=== PATIENT | female | born 1960 | race Caucasian/White ===

== ENCOUNTER → 2020-11-16 | Outpatient (CLI) | payer OTHER | LOC: US 12:54 | PROVIDERS: ATTEND Urology | DX: N20.0 Calculus of kidney (principal) | CPT/HCPCS: 74018; 76770; 76857 ==

== ENCOUNTER 2024-08-04 11:10 | Inpatient (IN) | payer MEDICARE, OTHER ==
[~2024-08-04] VITALS: Ht 165.1 cm; Wt 69.9 kg
[2024-08-04 13:03] LABS: BASOPHILS # (AUTO) 0.1 (0.0-0.1); BASOPHILS % 0.6 % (0.0-1.0); EOSINOPHILS % 0.5 % (0.0-6.0); HEMATOCRIT 31.5 % (34.2-44.1); HEMOGLOBIN 10.2 g/dL (12.0-16.0); LYMPHOCYTES # (AUTO) 1.3 (1.0-3.2); MEAN CORPUSCULAR HEMOGLOBIN 28.7 pg (28-32); MEAN CORPUSCULAR HGB CONC 32.4 g/dL (31-35); MEAN CORPUSCULAR VOLUME 88.5 fL (81-99); MONOCYTES # (AUTO) 0.6 (0.2-0.8); MONOCYTES % 6.8 % (4.4-11.3); NEUTROPHILS # (AUTO) 6.2 (2.1-6.9); NEUTROPHILS % 75.7 % (38.7-80.0); PLATELET COUNT 286 x10e3/uL (140-360); RED BLOOD COUNT 3.56 x10e6/uL (3.6-5.1)
[2024-08-04 13:17] LABS: INR 0.95; PARTIAL THROMBOPLASTIN TIME 21.7 seconds (23.8-35.5); PROTHROMBIN TIME 13.3 seconds (11.9-14.5)
[2024-08-04 13:28] LABS: ALBUMIN 3.5 g/dL (3.5-5.0); BILIRUBIN,TOTAL 0.2 mg/dL (0.2-1.2); CALCIUM 9.3 mg/dL (8.4-10.2); CREATININE, SERUM 1.36 mg/dL (0.57-1.11); TOTAL PROTEIN 7.1 g/dL (6.5-8.1)
[2024-08-04 13:47] LABS: ANION GAP 17.2 mmol/L (8-16)
[2024-08-04 13:48] LABS: POTASSIUM 5.2 mmol/L (3.5-5.1)
[2024-08-04] MEDS ORDERED: SODIUM CHLORIDE FLUSH 10 ML SYR INJ PRN (14:15)
[2024-08-04] MEDS ORDERED: Morphine 2mg Syringe 2 MG/ML SYR IV PRN (14:15)
[2024-08-04 15:12] VITALS: PULSE 69; RESP 16; TEMP 98.1
[2024-08-04] MEDS: SODIUM CHLORIDE 0.9% 1000ML 1,000 ML IV ONE (15:29)
[2024-08-04] MEDS: TRAMADOL HCL 50 MG TAB PO ONE (15:30)
[2024-08-04 16:45] VITALS: BP 148/61; PULSE 71; RESP 20; TEMP 98.3; O2SAT 98
[2024-08-04 16:50] VITALS: BP 148/61; PULSE 71; RESP 20; TEMP 98.3; O2SAT 98
[2024-08-04] MEDS ORDERED: ALPRAZOLAM 0.25 MG TAB PO PRN (17:30)
[2024-08-04] MEDS ORDERED: ACETAMINOPHEN 325 MG TAB PO PRN (17:30)
[2024-08-04] MEDS ORDERED: Morphine 4mg INJECTION 4 MG/ML INJ IV PRN (17:30)
[2024-08-04] MEDS ORDERED: DEXTROSE 50% SYRINGE 50 ML IV PRN (17:30)
[2024-08-04] MEDS ORDERED: ALPRAZOLAM0.25 MG PO (17:44)
[2024-08-04] MEDS ORDERED: ALLEGRA ALLERGY60 MG PO (19:22)
[2024-08-04] MEDS ORDERED: IGG (19:22)
[2024-08-04] MEDS ORDERED: TRESIBA100 UNIT/1 SC (19:22)
[2024-08-04] MEDS ORDERED: LISINOPRIL2.5 MG PO (19:22)
[2024-08-04] MEDS ORDERED: DYMISTA NASAL S23 GM INH (19:22)
[2024-08-04] MEDS ORDERED: AMIODARONE HCL100 MG PO (19:22)
[2024-08-04] MEDS ORDERED: B12 ACTIVE1000 MCG PO (19:22)
[2024-08-04] MEDS ORDERED: BETAMETHASONE (19:22)
[2024-08-04] MEDS ORDERED: ADVAIR HFA 115-12 GM INH (19:22)
[2024-08-04] MEDS ORDERED: METOPROLOL SUCC25 MG PO (19:22)
[2024-08-04] MEDS ORDERED: LEVOTHYROXINE75 MCG PO (19:22)
[2024-08-04] MEDS ORDERED: [UNRECOGNIZED DRUG - OTHER] PO (19:22)
[2024-08-04] MEDS ORDERED: LIPITOR10 MG PO (19:22)
[2024-08-04] MEDS ORDERED: LEVALBUTEROL TA15 GM INH (19:22)
[2024-08-04] MEDS ORDERED: METFORMIN HCL500 MG PO (19:22)
[2024-08-04] MEDS ORDERED: IRON159 MG PO (19:22)
[2024-08-04] MEDS ORDERED: CALCIUM CARBON500 MG PO (19:22)
[2024-08-04] MEDS ORDERED: EFFEXOR XR150 MG PO (19:22)
[2024-08-04] MEDS ORDERED: IPRATROPIU0.2 MG/1 M INH (19:22)
[2024-08-04] MEDS ORDERED: PROTONIX20 MG PO (19:22)
[2024-08-04] MEDS ORDERED: MONTELUKAST SOD10 MG PO (19:22)
[2024-08-04] MEDS: INSULIN REGULAR, HUMAN 100 UNIT/1 ML SQ SCH (21:00)
[2024-08-04 22:36] VITALS: BP 144/57; PULSE 69; RESP 20; TEMP 97.3; O2SAT 96
[2024-08-04] MEDS: MONTELUKAST SODIUM 10 MG TAB PO SCH (22:45)
[2024-08-04] MEDS: HYDROCODONE/APAP 5MG-325MG TAB PO ONE (22:45)
[2024-08-04] MEDS: ATORVASTATIN 40 MG TAB PO SCH (22:46)
[2024-08-05] MEDS: HYDROCODONE/APAP 5MG-325MG TAB PO ONE (02:45)
[2024-08-05] MEDS: SODIUM CHLORIDE 0.9% 1000ML 1,000 ML IV SCH (02:45)
[2024-08-05 04:45] VITALS: BP 168/65; PULSE 75; RESP 20; TEMP 97.8; O2SAT 98
[2024-08-05 05:09] LABS: BASOPHILS % 0.3 % (0.0-1.0); EOSINOPHILS % 0.1 % (0.0-6.0); HEMATOCRIT 29.4 % (34.2-44.1); HEMOGLOBIN 9.5 g/dL (12.0-16.0); LYMPHOCYTES # (AUTO) 1.6 (1.0-3.2); LYMPHOCYTES % 17.2 % (18.0-39.1); MEAN CORPUSCULAR HEMOGLOBIN 28.1 pg (28-32); MEAN CORPUSCULAR HGB CONC 32.3 g/dL (31-35); MONOCYTES # (AUTO) 0.9 (0.2-0.8); MONOCYTES % 9.6 % (4.4-11.3); NEUTROPHILS # (AUTO) 6.6 (2.1-6.9); NEUTROPHILS % 72.7 % (38.7-80.0); PLATELET COUNT 308 x10e3/uL (140-360); RED BLOOD COUNT 3.38 x10e6/uL (3.6-5.1); RED CELL DISTRIBUTION WIDTH 15.1 % (11.7-14.4); WHITE BLOOD COUNT 9.13 x10e3/uL (4.8-10.8)
[2024-08-05 05:25] LABS: INR 0.97; PROTHROMBIN TIME 13.5 seconds (11.9-14.5)
[2024-08-05 05:26] LABS: PARTIAL THROMBOPLASTIN TIME 25.7 seconds (23.8-35.5)
[2024-08-05 05:36] LABS: ALBUMIN 3.3 g/dL (3.5-5.0); BILIRUBIN,TOTAL 0.3 mg/dL (0.2-1.2); CALCIUM 9.3 mg/dL (8.4-10.2); CREATININE, SERUM 1.36 mg/dL (0.57-1.11); TOTAL PROTEIN 6.7 g/dL (6.5-8.1)
[2024-08-05] MEDS: LEVOTHYROXINE SODIUM 75 MCG TAB PO SCH (05:40)
[2024-08-05 08:00] VITALS: BP 161/70; PULSE 74; RESP 19; TEMP 98.2; O2SAT 98
[2024-08-05] MEDS ORDERED: NALOXONE HCL INJ 0.4 MG/ML AMP IV PRN (08:15)
[2024-08-05] MEDS ORDERED: HYDROMORPHONE 0.2MG/ML-SOD CHL 30ML PCA SYRINGE IV PRN (08:15)
[2024-08-05 09:00] VITALS: BP 161/70; PULSE 74; RESP 19; TEMP 98.2; O2SAT 98
[2024-08-05] MEDS: DOXYCYCLINE HYCLATE TABLET 100 MG TAB PO SCH (09:00)
[2024-08-05] MEDS: FLUTICASONE PROPIONATE NASAL SPRAY NS SCH (09:00)
[2024-08-05] MEDS: METOPROLOL SUCCINATE 25 MG TAB XL PO SCH (09:00)
[2024-08-05] MEDS: INSULIN GLARGINE 100 UNITS/ML VIAL SQ SCH (09:00)
[2024-08-05] MEDS: AMIODARONE HCL 200 MG TAB PO SCH (09:00)
[2024-08-05] MEDS: VENLAFAXINE HCL 75 MG TAB PO SCH ×2 (09:00→23:08)
[2024-08-05 09:10] LABS: FERRITIN 111.36 ng/mL (4.63-204.00)
[2024-08-05] MEDS: FAMOTIDINE 20 MG TAB PO ONE (09:13)
[2024-08-05] MEDS: ACETAMINOPHEN 1000 MG/100 ML IV PRN (09:17)
[2024-08-05] MEDS: HYDROMORPHONE 1MG/1ML INJ IV PRN ×2 (09:17→12:31)
[2024-08-05 12:00] VITALS: BP 175/66; PULSE 76; RESP 21; TEMP 98.3; O2SAT 96
[2024-08-05] MEDS: SENNOSIDES 8.6 MG TAB PO SCH (12:33)
[2024-08-05] MEDS: ONDANSETRON HCL INJ 2MG/ML 2ML 2 MG/ML VIAL IV PRN (14:47)
[2024-08-05 16:00] VITALS: BP 160/72; PULSE 69; RESP 19; TEMP 98.2; O2SAT 97
[2024-08-05 20:00] VITALS: BP 160/58; PULSE 69; RESP 18; TEMP 98.2; O2SAT 100
[2024-08-05] MEDS ORDERED: VENLAFAXINE HCL 75 MG TAB PO SCH (21:00)
[2024-08-05] MEDS: HEPARIN SOD (PORCINE) 5,000 UNIT/ML VIAL SC SCH (23:09)
[2024-08-06] VITALS (7 sets, daily range): BP systolic 123–163; BP diastolic 58–68; PULSE 66–83; RESP 16–19; TEMP 97.9–99; O2SAT 95–100
[2024-08-06] MEDS: LEVOTHYROXINE SODIUM 50 MCG TAB PO SCH (05:05)
[2024-08-06] MEDS ORDERED: HYDRALAZINE HCL 20 MG/ML VIAL IV PRN (07:30)
[2024-08-06] MEDS: SENNA-S TABLET PO SCH (09:00)
[2024-08-06 11:17] LABS: BASOPHILS % 0.4 % (0.0-1.0); EOSINOPHILS % 0.4 % (0.0-6.0); HEMATOCRIT 28.3 % (34.2-44.1); HEMOGLOBIN 9.1 g/dL (12.0-16.0); LYMPHOCYTES # (AUTO) 1.2 (1.0-3.2); LYMPHOCYTES % 17.2 % (18.0-39.1); MEAN CORPUSCULAR HEMOGLOBIN 28.2 pg (28-32); MEAN CORPUSCULAR HGB CONC 32.2 g/dL (31-35); MEAN CORPUSCULAR VOLUME 87.6 fL (81-99); MONOCYTES # (AUTO) 0.6 (0.2-0.8); MONOCYTES % 8.7 % (4.4-11.3); NEUTROPHILS # (AUTO) 4.9 (2.1-6.9); PLATELET COUNT 240 x10e3/uL (140-360); RED BLOOD COUNT 3.23 x10e6/uL (3.6-5.1); RED CELL DISTRIBUTION WIDTH 15.2 % (11.7-14.4); WHITE BLOOD COUNT 6.67 x10e3/uL (4.8-10.8)
[2024-08-06 11:41] LABS: INR 1.05; PROTHROMBIN TIME 14.3 seconds (11.9-14.5)
[2024-08-06 11:42] LABS: PARTIAL THROMBOPLASTIN TIME 27.9 seconds (23.8-35.5)
[2024-08-06 11:51] LABS: ALBUMIN 2.9 g/dL (3.5-5.0); ALBUMIN/GLOBULIN RATIO 0.8 (0.8-2.0); BILIRUBIN,TOTAL 0.4 mg/dL (0.2-1.2); CALCIUM 9.3 mg/dL (8.4-10.2); CREATININE, SERUM 0.98 mg/dL (0.57-1.11); TOTAL PROTEIN 6.6 g/dL (6.5-8.1)
[2024-08-06] MEDS: HYDROCODONE/APAP 5MG-325MG TAB PO PRN (23:56)
[2024-08-07] VITALS: BP 124/61; PULSE 75; RESP 18; TEMP 97.6; O2SAT 97
[2024-08-07 04:00] VITALS: BP 130/62; PULSE 72; RESP 18; TEMP 97.4; O2SAT 97
[2024-08-07 06:28] LABS: BASOPHILS % 0.6 % (0.0-1.0); EOSINOPHILS % 0.5 % (0.0-6.0); HEMOGLOBIN 9.3 g/dL (12.0-16.0); LYMPHOCYTES # (AUTO) 1.3 (1.0-3.2); LYMPHOCYTES % 21.5 % (18.0-39.1); MEAN CORPUSCULAR HEMOGLOBIN 28.5 pg (28-32); MEAN CORPUSCULAR HGB CONC 32.1 g/dL (31-35); MONOCYTES # (AUTO) 0.7 (0.2-0.8); MONOCYTES % 10.6 % (4.4-11.3); NEUTROPHILS # (AUTO) 4.1 (2.1-6.9); NEUTROPHILS % 66.3 % (38.7-80.0); PLATELET COUNT 271 x10e3/uL (140-360); RED BLOOD COUNT 3.26 x10e6/uL (3.6-5.1); RED CELL DISTRIBUTION WIDTH 15.2 % (11.7-14.4); WHITE BLOOD COUNT 6.24 x10e3/uL (4.8-10.8)
[2024-08-07 07:26] VITALS: BP 135/59; PULSE 73; RESP 18; TEMP 98.6; O2SAT 100
[2024-08-07 07:49] VITALS: BP 135/59; PULSE 73; RESP 18; TEMP 98.6; O2SAT 100
[2024-08-07 09:06] LABS: ALBUMIN 2.9 g/dL (3.5-5.0); ALBUMIN/GLOBULIN RATIO 0.8 (0.8-2.0); ANION GAP 17.1 mmol/L (8-16); BILIRUBIN,TOTAL 0.4 mg/dL (0.2-1.2); CALCIUM 9.5 mg/dL (8.4-10.2); CREATININE, SERUM 1.03 mg/dL (0.57-1.11); POTASSIUM 5.1 mmol/L (3.5-5.1); TOTAL PROTEIN 6.5 g/dL (6.5-8.1)
[2024-08-07] MEDS ORDERED: FENTANYL CITRATE/PF 100MCG/2 ML INJ ONE (09:35)
[2024-08-07] MEDS ORDERED: PROPOFOL IV EMULSION 10 MG/ML 20 ML VIAL ONE (09:40)
[2024-08-07] MEDS ORDERED: SEVOFLURANE INHAL SOLN 250 ML PEN BTL ONE (09:40)
[2024-08-07] MEDS ORDERED: LIDOCAINE HCL 2% LOCAL INJ 5 ML SDV VIAL INJ ONE (09:40)
[2024-08-07] MEDS ORDERED: MIDAZOLAM HCL 2 MG/2 ML VIAL ONE (09:43)
[2024-08-07] MEDS ORDERED: PHENYLEPHRINE HCL 1% 10 MG/ML VIAL ONE (10:14)
[2024-08-07] MEDS ORDERED: FAMOTIDINE 20 MG/2 ML VIAL IV ONE (10:17)
[2024-08-07] MEDS ORDERED: ONDANSETRON HCL INJ 2MG/ML 2ML 2 MG/ML VIAL ONE (10:17)
[2024-08-07] MEDS ORDERED: SODIUM CHLORIDE 0.9% 100 ML ONE (10:41)
[2024-08-07] MEDS ORDERED: Vancomycin IV 1 GM VIAL ONE (10:41)
[2024-08-07] MEDS ORDERED: HYDROCODONE/APAP 5MG-325MG TAB PO PRN (17:00)
[2024-08-07 17:36] VITALS: BP 133/61; PULSE 65; RESP 15; TEMP 97.7; O2SAT 95
[2024-08-07 20:00] VITALS: BP 94/72; PULSE 83; RESP 16; TEMP 97.2; O2SAT 96; O2SAT 97
[2024-08-07] MEDS: Vancomycin IV 1 GM in SODIUM CHLORIDE 0.9% 250ML 250 ML IV SCH (21:29)
[2024-08-07] MEDS: ENOXAPARIN SOD INJ 40 MG/0.4 ML SYR SC SCH (21:29)
[2024-08-07] MEDS: HYDROCODONE/APAP 7.5MG-325MG 1 EA TAB PO PRN (23:15)
[2024-08-08] VITALS: BP 118/58; PULSE 74; RESP 16; TEMP 97.3; O2SAT 99
[2024-08-08 08:10] VITALS: BP 132/57; PULSE 81; RESP 15; TEMP 98.6; O2SAT 98
[2024-08-08 08:33] VITALS: BP 132/57; PULSE 81; RESP 15; TEMP 98.6; O2SAT 98
[2024-08-08 08:55] LABS: BASOPHILS % 0.1 % (0.0-1.0); HEMATOCRIT 27.2 % (34.2-44.1); HEMOGLOBIN 8.6 g/dL (12.0-16.0); LYMPHOCYTES # (AUTO) 0.9 (1.0-3.2); LYMPHOCYTES % 9.1 % (18.0-39.1); MEAN CORPUSCULAR HGB CONC 31.6 g/dL (31-35); MEAN CORPUSCULAR VOLUME 88.6 fL (81-99); MONOCYTES % 10.3 % (4.4-11.3); NEUTROPHILS % 79.8 % (38.7-80.0); PLATELET COUNT 378 x10e3/uL (140-360); RED BLOOD COUNT 3.07 x10e6/uL (3.6-5.1); RED CELL DISTRIBUTION WIDTH 15.3 % (11.7-14.4); WHITE BLOOD COUNT 10.08 x10e3/uL (4.8-10.8)
[2024-08-08 09:17] LABS: ALBUMIN/GLOBULIN RATIO 0.9 (0.8-2.0); ANION GAP 18.1 mmol/L (8-16); BILIRUBIN,TOTAL 0.3 mg/dL (0.2-1.2); CALCIUM 9.4 mg/dL (8.4-10.2); CREATININE, SERUM 1.4 mg/dL (0.57-1.11); POTASSIUM 5.1 mmol/L (3.5-5.1); TOTAL PROTEIN 6.5 g/dL (6.5-8.1)
[2024-08-08 11:00] VITALS: BP 132/57; PULSE 73; RESP 16; TEMP 99; O2SAT 96
[2024-08-08] MEDS ORDERED: ACETAMINOPHEN 1000 MG/100 ML IV PRN (15:45)
[2024-08-08 20:00] VITALS: BP 104/50; PULSE 63; RESP 16; TEMP 98.2; O2SAT 98
[2024-08-09] VITALS (8 sets, daily range): BP systolic 104–132; BP diastolic 50–62; PULSE 59–69; RESP 15–17; TEMP 97.6–98.7; O2SAT 95–100
[2024-08-09 05:04] LABS: BASOPHILS % 0.5 % (0.0-1.0); EOSINOPHILS % 0.5 % (0.0-6.0); HEMATOCRIT 27.2 % (34.2-44.1); HEMOGLOBIN 8.5 g/dL (12.0-16.0); LYMPHOCYTES # (AUTO) 1.5 (1.0-3.2); LYMPHOCYTES % 17.7 % (18.0-39.1); MEAN CORPUSCULAR HEMOGLOBIN 28.4 pg (28-32); MEAN CORPUSCULAR HGB CONC 31.3 g/dL (31-35); MONOCYTES # (AUTO) 0.8 (0.2-0.8); MONOCYTES % 9.4 % (4.4-11.3); NEUTROPHILS % 71.3 % (38.7-80.0); PLATELET COUNT 334 x10e3/uL (140-360); RED BLOOD COUNT 2.99 x10e6/uL (3.6-5.1); RED CELL DISTRIBUTION WIDTH 15.6 % (11.7-14.4); WHITE BLOOD COUNT 8.36 x10e3/uL (4.8-10.8)
[2024-08-09 05:35] LABS: ANION GAP 14.3 mmol/L (8-16); CALCIUM 9.3 mg/dL (8.4-10.2); CREATININE, SERUM 1.11 mg/dL (0.57-1.11); POTASSIUM 4.3 mmol/L (3.5-5.1)
[2024-08-09] MEDS: FERROUS SULFATE 325 MG TAB PO SCH (08:14)
[2024-08-09] MEDS: HYDROCODONE/APAP 10MG-325MG TAB PO PRN (22:04)
[2024-08-10] VITALS (8 sets, daily range): BP systolic 114–144; BP diastolic 43–86; PULSE 66–76; RESP 16–18; TEMP 97.5–98.7; O2SAT 98–100
[2024-08-10 04:58] LABS: BASOPHILS % 0.6 % (0.0-1.0); EOSINOPHILS # (AUTO) 0.2 (0.0-0.4); EOSINOPHILS % 2.6 % (0.0-6.0); HEMATOCRIT 26.2 % (34.2-44.1); HEMOGLOBIN 8.3 g/dL (12.0-16.0); LYMPHOCYTES # (AUTO) 1.3 (1.0-3.2); LYMPHOCYTES % 18.2 % (18.0-39.1); MEAN CORPUSCULAR HEMOGLOBIN 28.6 pg (28-32); MEAN CORPUSCULAR HGB CONC 31.7 g/dL (31-35); MEAN CORPUSCULAR VOLUME 90.3 fL (81-99); MONOCYTES # (AUTO) 0.6 (0.2-0.8); MONOCYTES % 8.3 % (4.4-11.3); NEUTROPHILS # (AUTO) 4.9 (2.1-6.9); NEUTROPHILS % 69.6 % (38.7-80.0); PLATELET COUNT 315 x10e3/uL (140-360); RED CELL DISTRIBUTION WIDTH 15.9 % (11.7-14.4); WHITE BLOOD COUNT 7.02 x10e3/uL (4.8-10.8)
[2024-08-10 05:27] LABS: ANION GAP 15.5 mmol/L (8-16); CALCIUM 9.6 mg/dL (8.4-10.2); POTASSIUM 4.5 mmol/L (3.5-5.1)
[2024-08-10 05:49] LABS: CREATININE, SERUM 0.99 mg/dL (0.57-1.11)
[2024-08-11 05:05] VITALS: BP 134/59; PULSE 69; RESP 18; TEMP 98.5; O2SAT 98
[2024-08-11 05:13] LABS: BASOPHILS % 0.4 % (0.0-1.0); EOSINOPHILS # (AUTO) 0.3 (0.0-0.4); EOSINOPHILS % 4.8 % (0.0-6.0); HEMATOCRIT 28.4 % (34.2-44.1); HEMOGLOBIN 8.9 g/dL (12.0-16.0); LYMPHOCYTES % 15.5 % (18.0-39.1); MEAN CORPUSCULAR HEMOGLOBIN 28.6 pg (28-32); MEAN CORPUSCULAR HGB CONC 31.3 g/dL (31-35); MEAN CORPUSCULAR VOLUME 91.3 fL (81-99); MONOCYTES # (AUTO) 0.5 (0.2-0.8); MONOCYTES % 7.9 % (4.4-11.3); NEUTROPHILS # (AUTO) 4.7 (2.1-6.9); NEUTROPHILS % 70.4 % (38.7-80.0); PLATELET COUNT 312 x10e3/uL (140-360); RED BLOOD COUNT 3.11 x10e6/uL (3.6-5.1); RED CELL DISTRIBUTION WIDTH 15.9 % (11.7-14.4); WHITE BLOOD COUNT 6.72 x10e3/uL (4.8-10.8)
[2024-08-11 05:58] LABS: ALBUMIN 2.8 g/dL (3.5-5.0); ALBUMIN/GLOBULIN RATIO 0.8 (0.8-2.0); ANION GAP 15.4 mmol/L (8-16); BILIRUBIN,TOTAL 0.4 mg/dL (0.2-1.2); CALCIUM 9.5 mg/dL (8.4-10.2); CREATININE, SERUM 0.88 mg/dL (0.57-1.11); POTASSIUM 4.4 mmol/L (3.5-5.1); TOTAL PROTEIN 6.3 g/dL (6.5-8.1)
[2024-08-11 08:31] VITALS: BP 135/50; PULSE 71; RESP 15; TEMP 98.7; O2SAT 95
[2024-08-11 09:22] VITALS: BP 135/50; PULSE 71; RESP 15; TEMP 98.7; O2SAT 95
[2024-08-11 11:42] VITALS: BP 145/70; PULSE 81; RESP 17; TEMP 98.1; O2SAT 100
[2024-08-11 20:00] VITALS: BP 145/70; PULSE 81; RESP 17; TEMP 98.1; O2SAT 100
[2024-08-11 20:39] VITALS: BP 129/62; PULSE 71; RESP 17; TEMP 99.1; O2SAT 96
[2024-08-12] VITALS (7 sets, daily range): BP systolic 113–158; BP diastolic 57–70; PULSE 64–76; RESP 16–20; TEMP 97.7–98.6; O2SAT 97–100
[2024-08-13 00:41] VITALS: BP 145/69; PULSE 73; RESP 18; TEMP 97.3; O2SAT 99
[2024-08-13 04:32] VITALS: BP 140/49; PULSE 74; RESP 19; TEMP 97.7; O2SAT 98
[2024-08-13 04:59] LABS: BASOPHILS # (AUTO) 0.1 (0.0-0.1); BASOPHILS % 0.6 % (0.0-1.0); EOSINOPHILS # (AUTO) 0.3 (0.0-0.4); EOSINOPHILS % 3.9 % (0.0-6.0); HEMATOCRIT 27.8 % (34.2-44.1); HEMOGLOBIN 8.5 g/dL (12.0-16.0); LYMPHOCYTES # (AUTO) 1.4 (1.0-3.2); LYMPHOCYTES % 17.8 % (18.0-39.1); MEAN CORPUSCULAR HGB CONC 30.6 g/dL (31-35); MEAN CORPUSCULAR VOLUME 91.4 fL (81-99); MONOCYTES # (AUTO) 0.7 (0.2-0.8); MONOCYTES % 9.2 % (4.4-11.3); NEUTROPHILS # (AUTO) 5.3 (2.1-6.9); NEUTROPHILS % 67.6 % (38.7-80.0); PLATELET COUNT 367 x10e3/uL (140-360); RED BLOOD COUNT 3.04 x10e6/uL (3.6-5.1); RED CELL DISTRIBUTION WIDTH 16.5 % (11.7-14.4); WHITE BLOOD COUNT 7.85 x10e3/uL (4.8-10.8)
[2024-08-13 05:24] LABS: ALBUMIN 2.7 g/dL (3.5-5.0); ALBUMIN/GLOBULIN RATIO 0.8 (0.8-2.0); BILIRUBIN,TOTAL 0.4 mg/dL (0.2-1.2); CALCIUM 9.6 mg/dL (8.4-10.2); CREATININE, SERUM 0.84 mg/dL (0.57-1.11)
[2024-08-13 08:00] VITALS: BP 149/70; PULSE 95; RESP 16; TEMP 98.2; O2SAT 97
[2024-08-13 11:18] VITALS: BP 135/67; PULSE 73; RESP 16; TEMP 98.3; O2SAT 97
[2024-08-13 16:35] VITALS: BP 135/67; PULSE 73; RESP 18; TEMP 98.3; O2SAT 97
[2024-08-13 20:00] VITALS: BP 129/56; PULSE 70; RESP 20; TEMP 98.1; O2SAT 99
[2024-08-14] VITALS: BP 144/61; PULSE 72; RESP 18; TEMP 97.5; O2SAT 95
[2024-08-14 05:46] VITALS: BP 133/73; PULSE 78; RESP 16; TEMP 98.1; O2SAT 97
[2024-08-14 08:00] VITALS: BP 139/76; PULSE 84; RESP 16; TEMP 98.3; O2SAT 98
[2024-08-14 09:00] VITALS: BP 139/76; PULSE 84; RESP 16; TEMP 98.3; O2SAT 98
[2024-08-14 12:00] VITALS: BP 146/65; PULSE 82; RESP 16; TEMP 98.1; O2SAT 98
[2024-08-14] MEDS ORDERED: LOVENOX40 MG/0.4 SC (12:56)
[2024-08-14] MEDS ORDERED: BALSAM PERU/CASTOR OIL 60 GM OINT...G. TP SCH (16:00)
== END 2024-08-14 15:05 | DRG 488 ==
LOC: ER 11:50 → ERHOLD 14:12 → MED/SURG 16:23 → OBSVTOIN 08-05 08:12
PROVIDERS: ADMIT Family Medicine Adult Medicine; ATTEND Family Medicine Adult Medicine
PROC: 0QSD04Z Reposition Right Patella with Internal Fixation Device, Open Approach (ICD-10-PCS; 2024-08-07)
PROC: 0LQQ0ZZ Repair Right Knee Tendon, Open Approach (ICD-10-PCS; 2024-08-07)
PROC: 0QBD0ZZ Excision of Right Patella, Open Approach (ICD-10-PCS; principal; 2024-08-07 10:06)
DX: S82.041A Displaced comminuted fracture of right patella, initial encounter for closed fracture (principal); I13.0 Hypertensive heart and chronic kidney disease with heart failure and stage 1 through stage 4 chronic kidney disease, or unspecified chronic kidney disease; M84.48XA Pathological fracture, other site, initial encounter for fracture; N17.9 Acute kidney failure, unspecified; I50.32 Chronic diastolic (congestive) heart failure; L03.116 Cellulitis of left lower limb; Z66 Do not resuscitate; E11.22 Type 2 diabetes mellitus with diabetic chronic kidney disease; D64.9 Anemia, unspecified; N18.30 Chronic kidney disease, stage 3 unspecified; E78.5 Hyperlipidemia, unspecified; E87.5 Hyperkalemia; I25.10 Atherosclerotic heart disease of native coronary artery without angina pectoris; I48.0 Paroxysmal atrial fibrillation; I65.29 Occlusion and stenosis of unspecified carotid artery; R91.1 Solitary pulmonary nodule; E04.1 Nontoxic single thyroid nodule; K21.9 Gastro-esophageal reflux disease without esophagitis; M19.90 Unspecified osteoarthritis, unspecified site; F41.1 Generalized anxiety disorder; S62.306D Unspecified fracture of fifth metacarpal bone, right hand, subsequent encounter for fracture with routine healing; R29.6 Repeated falls; L40.9 Psoriasis, unspecified; W18.30XA Fall on same level, unspecified, initial encounter; Y92.010 Kitchen of single-family (private) house as the place of occurrence of the external cause; Z79.51 Long term (current) use of inhaled steroids; Z79.4 Long term (current) use of insulin; Z79.84 Long term (current) use of oral hypoglycemic drugs; Z79.890 Hormone replacement therapy; Z90.710 Acquired absence of both cervix and uterus; Z90.49 Acquired absence of other specified parts of digestive tract; Z88.1 Allergy status to other antibiotic agents; Z88.5 Allergy status to narcotic agent; Z88.6 Allergy status to analgesic agent; Z88.8 Allergy status to other drugs, medicaments and biological substances; Z81.8 Family history of other mental and behavioral disorders
CPT/HCPCS: 36415; 71046; 71250; 76000; 80048; 80053; 82607; 82728; 82746; 82948; 83540; 83605; 84443; 84466; 85025; 85045; 85610; 85730; 86850; 86900; 93005; 93306; 93880; 93925; 96372; 99284; C1713; C1763; G0378; J1171; J1644; J1650; J1815; J2003; J2250; J2371; J2405; J7030; J7050